=== PATIENT | female | born 1975 ===

== ENCOUNTER 2017-03-02 06:09 | Inpatient (IN) | payer BC, OTHER ==
[2017-03-02] MEDS ORDERED: Lactated Ringer's 1,000 ML IV SCH ×2 (06:30→08:52)
--- NOTE | 2017-03-02 06:38 | ED PDOC ---
HPI: General Adult Time Seen by Provider: 03/02/17 06:11 Chief Complaint (Nursing): Abdominal Pain Chief Complaint (Provider): vaginal bleeding History Per: Patient History/Exam Limitations: no limitations Onset/Duration Of Symptoms: Days (2 weeks ) Have you had recent travel within the past 21 days to any of the following countries: [place], [place], [place] or [place]?: No Current Symptoms Are (Timing): Still Present Additional Complaint(s): 41yo female recently diagnosed with missed presents to the ED with c/o vaginal bleeding x 2 weeks. Patient reports persistent bleeding and pelvic pain and was advised by her [employer]FFER (Dr. Donaldson) to come to ED for further eval. Denies fever, cough, chest pain, SOB. Patient advised she may require D&C as she reported having significant bleeding since onset of symptoms. Past Medical History Reviewed: Historical Data, Nursing Documentation, Vital Signs Vital Signs: Last Vital Signs Temp 98.7 F 03/02/17 06:14 Pulse 62 03/02/17 06:14 Resp 16 03/02/17 06:14 BP 102/65 03/02/17 06:14 Pulse Ox 99 03/02/17 06:14 - Medical History PMH: Hypothyroidism - Surgical History Other surgeries: D&C - Family History Family History: States: No Known Family Hx - Social History Current smoker - smoking cessation education provided: No Alcohol: None Drugs: Denies - Allergies Allergies/Adverse Reactions: Allergies Allergy/AdvReac Type Severity Reaction Status Date / Time aspirin Allergy Mild RASH Verified 03/02/17 06:22 Review of Systems ROS Statement: Except As Marked, All Systems Reviewed And Found Negative Constitutional: Negative for: Fever Cardiovascular: Negative for: Chest Pain Respiratory: Negative for: Cough, Shortness of Breath Genitourinary Female: Positive for: Vaginal Bleeding, Pelvic Pain Physical Exam - Reviewed Nursing Documentation Reviewed: Yes Vital Signs Reviewed: Yes - Physical Exam Appears: Positive for: Well, No Acute Distress Head Exam: Positive for: ATRAUMATIC, NORMAL INSPECTION, NORMOCEPHALIC Skin: Positive for: Normal Color, Warm, Dry Eye Exam: Positive for: Normal appearance, EOMI, PERRL ENT: Positive for: Normal ENT Inspection Neck: Positive for: Normal, Painless ROM, Supple Cardiovascular/Chest: Positive for: Regular Rate, Rhythm. Negative for: Murmur , Tachycardia Respiratory: Positive for: Normal Breath Sounds. Negative for: Wheezing, Respiratory Distress Gastrointestinal/Abdominal: Positive for: Soft, Tenderness (mild suprapubic ) Back: Positive for: Normal Inspection. Negative for: L CVA Tenderness, R CVA Tenderness Extremity: Positive for: Normal ROM. Negative for: Deformity, Swelling Neurologic/Psych: Positive for: Alert, Oriented - ECG O2 Sat by Pulse Oximetry: 99 Pulse Ox Interpretation: Normal (RA) Medical Decision Making Medical Decision Makin: Impression: 41yo female referred for further eval of missed Case discussed with Dr. Donaldson who advised patient be admitted for D&C due to persistence of symptoms. EKG, labs, Lactated Ringer's 125mls/hr IV ordered. Dx: missed fair Scribe Attestation: Documented by Judson Palacios acting as a scribe for Rusty Mckoy MD. Provider Scribe Attestation: All medical record entries made by the Scribe were at my direction and personally dictated by me. I have reviewed the chart and agree that the record accurately reflects my personal performance of the history, physical exam, medical decision making, and the department course for this patient. I have also personally directed, reviewed, and agree with the discharge instructions and disposition. Disposition - Clinical Impression Clinical Impression: Missed - Patient ED Disposition Is Patient to be Admitted: Yes Discussed With : Gio Donaldson - Disposition Disposition Time: 06:30 Condition: FAIR
[2017-03-02 07:15] LABS: BASO % 0.4 % (0.0-2.0); EOS # 0.1 K/uL (0.0-0.7); EOS % 1.4 % (0.0-4.0); HEMATOCRIT 38.1 % (34.0-47.0); LYMPH # 1.8 K/uL (1.0-4.3); LYMPH % 19.7 % (20.0-40.0); MEAN CELL VOLUME 93.2 fl (81.0-99.0); MEAN CORPUSCULAR HEMOGLOBIN 31.2 pg (27.0-31.0); MEAN CORPUSCULAR HGB CONC 33.5 g/dL (33.0-37.0); MEAN PLATELET VOLUME 7.1 fl (7.2-11.7); MONO # 0.6 K/uL (0.0-0.8); MONO % 7.1 % (0.0-10.0); NEUT # 6.5 K/uL (1.8-7.0); NEUT % 71.4 % (50.0-75.0); WHITE BLOOD COUNT 9.1 K/uL (4.8-10.8)
[2017-03-02] MEDS ORDERED: Propofol 10 mg/ml Inj (20 ML) ONE (07:18)
[2017-03-02] MEDS ORDERED: Lidocaine Hydrochloride 5 ML INJ ONE (07:19)
[2017-03-02] MEDS ORDERED: Midazolam 2 MG/2 ML VIAL ONE (07:19)
[2017-03-02] MEDS ORDERED: Oxytocin 20 units in LR 0 ML IV ONE (07:28)
[2017-03-02] MEDS ORDERED: Ferric Subsulfate Sol(60 mL) ONE (07:28)
[2017-03-02] MEDS ORDERED: Strong Iodine Topical Sol. 5%-10% ONE (07:28)
[2017-03-02] MEDS ORDERED: Sevoflurane - Inhalation Anesthetic Liq (250 ml) ONE (07:28)
[2017-03-02] MEDS ORDERED: Silver Nitrate Topical - Stick ONE (07:28)
[2017-03-02 07:46] LABS: ALB/GLOB RATIO 1.7 (1.0-2.1); ALKALINE PHOSPHATASE 45 U/L (38-126); ALT/SGPT 25 U/L (9-52); AST/SGOT 19 U/L (14-36); BILIRUBIN,TOTAL 0.7 mg/dl (0.2-1.3); BLOOD UREA NITROGEN 10 mg/dl (7-17); CARBON DIOXIDE 21 mmol/L (22-30); CHLORIDE 107 mmol/L (98-107); GFR AFRICAN-AMERICAN > 60; GLUCOSE,RANDOM 83 mg/dL (65-105); POTASSIUM 4.1 MMOL/L (3.6-5.0); SODIUM 138 mmol/l (132-148); TOTAL PROTEIN 7.1 G/DL (6.3-8.2)
[2017-03-02 07:51] LABS: RBC URINE 4 /hpf (0-3); URINE BACTERIA OCC (<OCC); URINE BILIRUBIN NEGATIVE (NEGATIVE); URINE BLOOD SMALL (NEGATIVE); URINE COLOR YELLOW (YELLOW); URINE GLUCOSE (UA) NEG (Normal); URINE KETONE NEGATIVE (NEGATIVE); URINE LEUKOCYTE ESTERASE TRACE Leu/uL (Negative); URINE PROTEIN NEGATIVE (NEGATIVE); URINE UROBILINOGEN 0.2-1.0 mg/dL (0.2-1.0); WBC URINE 2 /hpf (0-5)
[2017-03-02] MEDS ORDERED: Lactated Ringer's 1,000 ML IV ONE (08:07)
[2017-03-02] MEDS ORDERED: Oxytocin 10 Units/ml Inj ONE (08:22)
[2017-03-02] MEDS ORDERED: Oxytocin 10 Units/ml Inj IM ONE (08:22)
[2017-03-02] MEDS ORDERED: Oxycodone/Acetaminophen 5/325 mg Tab PO PRN (08:42)
[2017-03-02] MEDS ORDERED: HYDROmorphone 0.5 mg/0.5 ml ISec IVP PRN (08:52)
[2017-03-02 09:31] VITALS: RESP 18
[2017-03-02 10:14] VITALS: TEMP 98.2; O2SAT 98
[2017-03-02 11:01] VITALS: BP 100/60; PULSE 79
--- NOTE | 2017-03-02 12:04 | CARD ---
APPROVED REPORT EKG Measurement Heart [id number] ID [id number] <Conclusion> Sinus bradycardia Otherwise normal ECG
--- NOTE | 2017-03-06 15:13 | OP ---
PROCEDURE DATE: 03/02/2017 PREOPERATIVE DIAGNOSIS: Missed with vaginal bleeding. POSTOPERATIVE DIAGNOSIS: Missed with vaginal bleeding. PROCEDURE PERFORMED: Suction, dilatation, and curettage. SURGEON: Dr. Donaldson. ANESTHESIA USED: General per Dr. Rosado. ESTIMATED BLOOD LOSS: 50 mL. DRAINS USED: None. REPLACEMENTS USED: None. FINDINGS: 1. Cervix appears soft, fingertip, open, posterior, and mobile with some blood at the os. 2. Uterus anteverted about 8 weeks size, mobile, smooth to palpation. 3. No adnexal masses to palpation bilaterally. 4. Suction, dilatation, and curettage performed using a #7 plastic cannula without any complications . PROCEDURE: The patient was taken to the operating room and placed on the operating table in a supine position. Following induction of general anesthesia, the patient was then replaced in a dorsal lith otomy position. Perineal and genital areas were draped and prepped in the usual sterile manner. At this time, sterile catheter was then placed into the bladder, clear fluid was then evacuated from the bladder. The patient was then examined under anesthesia with the above findings. Heavy weighted sp eculum was then placed in the posterior wall of vagina, exposing the cervix. The anterior lip of the cervix was then grasped using a single-tooth tenaculum and retracted superiorly. At this time, we t demetrius proceeded to dilate the endocervical canal using Clark dilators in an increasing size manner. Us ing a #7 curved plastic cannula, suction curettage was then performed. Moderate amount of tissue was then obtained and sent to pathology for proper pathological evaluation. At this time, we then proce eded to curette the endometrial cavity using sharp curettage very gingerly; minimal amount of tissue obtained and the uterus was massaged and contracted well, no bleeding noted. A single-tooth tenaculu m was then removed. No bleeding noted from the tenaculum site. The patient tolerated the procedure well. There were no complications. She was transferred to the recovery room in satisfactory conditi on. Gio Donaldson MD cc: 71 TT: 03/06/2017 15:12:44 artur
== END 2017-03-02 11:30 | disposition home or self-care (01) | DRG 770 ==
LOC: H.ER 06:09 → H.ERHOLD 06:24
PROVIDERS: ADMIT Specialist; ATTEND Specialist
PROC: 10D17ZZ Extraction of Products of Conception, Retained, Via Natural or Artificial Opening (ICD-10-PCS; principal; 2017-03-02 07:45)
DX: O02.1 Missed abortion (principal); E03.9 Hypothyroidism, unspecified; Z88.6 Allergy status to analgesic agent